=== PATIENT | female | born 1960 | race Caucasian/White ===

== ENCOUNTER 2017-02-05 08:04 | Day surgery (SDC) | payer BC ==
--- NOTE | ~2017-02-05 | EGD ---
EGD REPORT [facility] [address] [address] NAME: KRISTAL GUTIERREZ : [birth year] STATUS : REG [facility]#: [id number] AGE: 56 ADM/REG DATE : 02/05/17 MR#: [id number] REPORT SERV DATE: 02/05/17 DICTATED BY: BERTIN YUSUF DATE: 02/05/17 REPORT STATUS : Draft [facility]ANS[facility]: [facility] DATE: 02/05/17 Endoscopy Center Patient Name: Kristal Gutierrez Date of : 1960 Attending MD: BERTIN YUSUF MD Procedure Date No Time: 02/05/2017 Procedure: Colonoscopy Indications: Screening for colorectal malignant neoplasm (last colonoscopy 10 years ago) Referring MD: JOHNATHON CARPENTER Medicines: Propofol per Anesthesia Complications: No immediate complications. Procedure: Pre-Anesthesia Assessment: - ASA Grade Assessment: II - A patient with mild systemic disease. After I obtained informed consent, the scope was passed under direct vision. Throughout the procedure, the patient's blood pressure, pulse, and oxygen saturations were monitored continuously. The [id number] was introduced through the anus and advanced to the terminal ileum. The colonoscopy was performed without difficulty. The patient tolerated the procedure well. The quality of the bowel preparation was good. Findings: The perianal and digital rectal examinations were normal. The terminal ileum appeared normal. The colon (entire examined portion) appeared normal. Non-bleeding internal hemorrhoids were found during retroflexion and were mild, small and Grade I (internal hemorrhoids that do not prolapse). Impression: - The examined portion of the ileum was normal. - The entire examined colon is normal. - Non-bleeding internal hemorrhoids. Recommendation: - Patient has a contact number available for emergencies. The signs and symptoms of potential delayed complications were discussed with the patient. Return to normal activities tomorrow. Written discharge instructions were provided to the patient. - Return to previous diet. - Continue present medications. - Repeat colonoscopy in 5 years for screening purposes. - Return to my office as previously scheduled. - Discharge patient to home. EGD REPORT [facility] [address] [place]. [address] NAME: KRISTAL GUTIERREZ : [birth year] STATUS : REG [facility] PAT#: [id number] AGE: 56 ADM/REG DATE : 02/05/17 MR#: [id number] REPORT SERV DATE: 02/05/17 DICTATED BY: BERTIN YUSUF DATE: 02/05/17 REPORT STATUS : Draft TRANSCRIBED BY: [employer] DATE: 02/05/17 Procedure Code(s): --- Professional --- G0121, Colorectal cancer screening; colonoscopy on individual not meeting criteria for high risk Diagnosis Code(s): --- Professional --- K64.0, First degree hemorrhoids Z12.11, Encounter for screening for malignant neoplasm of colon CPT copyright 2013 [employer]. All rights reserved. The codes documented in this report are preliminary and upon manager sales training review may be revised to meet current compliance requirements. Bertin Yusuf MD BERTIN YUSUF MD 02/05/2017 11:00 AM This report has been signed electronically. Number of Addenda: 0 Note Initiated On: 02/05/2017 10:18 AM Scope Withdrawal Time 0 hours 9 minutes 35 seconds [address] [place] [address]
[~2017-02-05 08:04] MED LIST: ATV.5 PO; LEVOTHYROXIN50 MCG PO; MCZ125 PO; PREMPRO1 TA2 PO; PROZAC PO; SEV VITAMINS PO; TOPAMAX50 MG PO; WELLXL300 PO; ZOL100 PO; [UNRECOGNIZED DRUG - OTHER]
== END 2017-02-05 23:59 | disposition home or self-care (01) ==
LOC: DMU 08:04
PROVIDERS: Internal Medicine Gastroenterology
PROC: 0DJD8ZZ Inspection of Lower Intestinal Tract, Via Natural or Artificial Opening Endoscopic (ICD-10-PCS; principal; 2017-02-05 09:30)
DX: Z12.11 Encounter for screening for malignant neoplasm of colon (principal); K64.0 First degree hemorrhoids; E03.9 Hypothyroidism, unspecified; H81.09 Meniere's disease, unspecified ear; R11.0 Nausea; F90.9 Attention-deficit hyperactivity disorder, unspecified type; Z79.899 Other long term (current) drug therapy